=== PATIENT | female | born 1995 | race American Indian/Alaskan Native ===

== ENCOUNTER 2021-08-18 18:01 | Outpatient (CLI) | payer MEDICAID ==
[2021-08-18 18:54] VITALS: BP 102/61
== END 2021-08-18 21:37 | disposition home or self-care (01) ==
LOC: APU 18:01 → TRG 18:01
PROVIDERS: ATTEND Obstetrics & Gynecology
DX: Z34.93 Encounter for supervision of normal pregnancy, unspecified, third trimester (principal); Z3A.37 37 weeks gestation of pregnancy
CPT/HCPCS: 59025

== ENCOUNTER 2021-08-26 16:40 | Outpatient (CLI) | payer MEDICAID ==
[2021-08-26 18:11] VITALS: BP 106/59
== END 2021-08-26 18:26 | disposition home or self-care (01) ==
LOC: TRG 16:40 → APU 16:42 → TRG 18:26
PROVIDERS: ATTEND Obstetrics & Gynecology
DX: O42.92 Full-term premature rupture of membranes, unspecified as to length of time between rupture and onset of labor (principal); O26.893 Other specified pregnancy related conditions, third trimester; M54.9 Dorsalgia, unspecified; Z3A.38 38 weeks gestation of pregnancy
CPT/HCPCS: 59025

== ENCOUNTER 2021-08-29 14:30 | Outpatient (CLI) | payer MEDICAID ==
[2021-08-29 15:15] VITALS: BP 101/65
== END 2021-08-29 19:00 | disposition home or self-care (01) ==
LOC: TRG 14:30 → APU 14:31 → TRG 19:00
PROVIDERS: ATTEND Obstetrics & Gynecology
DX: Z34.93 Encounter for supervision of normal pregnancy, unspecified, third trimester (principal); Z3A.38 38 weeks gestation of pregnancy
CPT/HCPCS: 59025